=== PATIENT | male | born 1955 | race Caucasian/White ===

== ENCOUNTER 2019-10-01 17:45 | Inpatient (IN) ==
[2019-10-01] MEDS ORDERED: Naloxone 0.4 MG/ML INJ IVP PRN (21:31)
[2019-10-01] MEDS ORDERED: 0.9 % Sodium Chloride 1,000 ML IVC SCH (21:45)
[2019-10-01 22:00] LABS: Basophils % 0.2 %; INR 1.1; Prothrombin Time 12.5 Seconds (9.4-12.1)
[2019-10-01 22:01] LABS: Basophils # 0.1 K/mcL (0.0-0.2); Eosinophils % 0.2 %; Hematocrit 33.8 % (37.5-50.1); Hemoglobin 11.8 g/dL (12.9-16.9); Immature Granulocytes % 0.7 % (0-4); Lymphocytes # 1.4 K/mcL (0.6-4.6); Lymphocytes % 5.2 %; Mean Corpuscular HGB Conc 34.9 g/dL (31.6-35.5); Mean Corpuscular Volume 91.6 fL (83.0-100.0); Mean Platelet Volume 10.9 fL (9.4-12.4); Monocytes # 1.7 K/mcL (0.0-1.3); Monocytes % 6.5 %; Neutrophils # 22.9 K/mcL (1.6-8.9); Platelet Count 290 K/mcL (140-400); Red Blood Count 3.69 M/mcL (4.19-5.50); Segmented Neutrophils % 87.2 %; White Blood Count 26.2 K/mcL (4.3-11.1)
[2019-10-01 22:02] LABS: Eosinophils # 0.1 K/mcL (0.0-0.6)
[2019-10-01 22:03] LABS: Activated Partial Thrombo Time 30.6 Seconds (26.0-36.0); Platelet Estimate Normal (Normal)
[2019-10-01 22:17] LABS: Alanine Aminotransferase 30 Units/L (7-52); Albumin 3.2 g/dL (3.5-5.7); Albumin/Globulin Ratio 0.9 (1.1-2.2); Alkaline Phosphatase 83 Units/L (34-104); Aspartate Amino Transferase 49 Units/L (13-39); BUN/Creatinine Ratio 16 (6-26); Bilirubin,Total 0.5 mg/dL (0.3-1.0); Blood Urea Nitrogen 11 mg/dL (8-23); Calcium 8.8 mg/dL (8.6-10.3); Carbon Dioxide 23 mEq/L (23-29); Chloride 100 mEq/L (98-107); Globulin 3.4 g/dL (2.4-3.5); Glucose 123 mg/dL (70-105); Osmolality,Calculated 271 (280-300); Potassium 3.8 mEq/L (3.5-5.1); Sodium 130 mEq/L (136-145); Total Protein 6.6 g/dL (6.4-8.9); eGFR For African Americans > 60 (> 60); eGFR For Non-African Americans > 60 (> 60)
[2019-10-01] MEDS: Azithromycin 250 MG TABLET PO SCH (22:46)
[2019-10-01] MEDS: Acetaminophen 325 MG TABLET PO PRN (22:47)
[2019-10-01] MEDS: *HR* Heparin 5,000 UNIT/ML VIAL SQ SCH (22:49)
[2019-10-01] MEDS: Nicotine 21 MG PATCH.TD24 TD SCH (22:53)
[2019-10-01] MEDS: Ipratropium/Albuterol Neb 3 ML IH SCH (23:14)
[2019-10-01] MEDS ORDERED: *HR* LORazepam 2 MG/ML VIAL IVP ONE (23:36)
[2019-10-02] MEDS: Ipratropium/Albuterol Neb 3 ML IH SCH ×6 (03:12→23:56)
[2019-10-02 04:50] LABS: Bilirubin,Urine Negative (Negative); Blood,Urine Negative (Negative); Clarity,Urine Clear (Clear); Color,Urine Yellow (Yellow); Glucose,Urine (UA) Normal (Normal); Ketones,Urine 15 mg/dL (Negative); Leukocyte Esterase,Urine Negative (Negative); Nitrite,Urine Negative (Negative); PH,Urine 6.5 pH Units (5.0-8.0); Protein,Urine 30 mg/dL (Neg-Trace); Specific Gravity,Urine 1.015 (1.010-1.025); Urobilinogen,Urine Normal (Normal)
[2019-10-02 04:53] LABS: Bacteria,Urine None Seen per hpf (None-Few); Hyaline Casts,Urine None Seen per lpf (None-Few); RBC,Urine 0-3 per hpf (0-3); Squamous Epithelial Cell,Urine Moderate per lpf (None-Few); WBC,Urine 0-3 per hpf (0-3)
[2019-10-02] MEDS: *HR* Heparin 5,000 UNIT/ML VIAL SQ SCH ×3 (05:25→19:45)
[2019-10-02] MEDS: cefTRIAXone 1,000 MG in Water for inj. (sterile) 10 ML IVP SCH (09:27)
[2019-10-02] MEDS: Nicotine 21 MG PATCH.TD24 TD SCH (09:27)
[2019-10-02] MEDS: Acetaminophen 325 MG TABLET PO PRN ×3 (11:38→22:45)
[2019-10-02] MEDS ORDERED: *HR* LORazepam 2 MG/ML VIAL IVP ONE (14:48)
[2019-10-02] MEDS: OLANZapine 10 MG TAB.RAPDIS PO SCH (19:54)
[2019-10-02] MEDS: clonazePAM 0.5 MG TABLET PO SCH (19:54)
[2019-10-02] MEDS: Azithromycin 250 MG TABLET PO SCH (19:54)
[2019-10-02] MEDS: Sennosides/Docusate Sodium TABLET PO SCH (19:54)
[2019-10-02] MEDS: Melatonin 3 MG TABLET PO SCH (19:54)
[2019-10-02] MEDS: Latanoprost 2.5 ML BOTTLE BOTH EYES SCH (20:01)
[2019-10-02] MEDS: Lithium Carbonate ER 300 MG TABLET.ER PO SCH (20:06)
[2019-10-03] MEDS: Ipratropium/Albuterol Neb 3 ML IH SCH ×7 (05:24→23:05)
[2019-10-03] MEDS: *HR* Heparin 5,000 UNIT/ML VIAL SQ SCH ×3 (05:39→20:51)
[2019-10-03 06:29] LABS: Basophils # 0.1 K/mcL (0.0-0.2); Basophils % 0.3 %; Eosinophils # 0.1 K/mcL (0.0-0.6); Eosinophils % 0.6 %; Hematocrit 33.5 % (37.5-50.1); Immature Granulocytes % 0.7 % (0-4); Lymphocytes # 1.2 K/mcL (0.6-4.6); Lymphocytes % 6.5 %; Mean Corpuscular HGB Conc 32.8 g/dL (31.6-35.5); Mean Corpuscular Hemoglobin 30.8 pg (28.0-33.3); Mean Corpuscular Volume 93.8 fL (83.0-100.0); Mean Platelet Volume 10.9 fL (9.4-12.4); Monocytes # 1.4 K/mcL (0.0-1.3); Monocytes % 7.4 %; Neutrophils # 15.9 K/mcL (1.6-8.9); Platelet Count 307 K/mcL (140-400); Red Blood Count 3.57 M/mcL (4.19-5.50); Segmented Neutrophils % 84.5 %; White Blood Count 18.8 K/mcL (4.3-11.1)
[2019-10-03 06:54] LABS: BUN/Creatinine Ratio 9 (6-26); Blood Urea Nitrogen 5 mg/dL (8-23); Calcium 8.9 mg/dL (8.6-10.3); Carbon Dioxide 24 mEq/L (23-29); Chloride 100 mEq/L (98-107); Glucose 125 mg/dL (70-105); Osmolality,Calculated 277 (280-300); Potassium 3.9 mEq/L (3.5-5.1); Sodium 134 mEq/L (136-145); eGFR For African Americans > 60 (> 60); eGFR For Non-African Americans > 60 (> 60)
[2019-10-03] MEDS: Lithium Carbonate ER 300 MG TABLET.ER PO SCH ×2 (07:48→20:49)
[2019-10-03] MEDS: Aspirin Enteric Coated 325 MG Tablet PO SCH (07:48)
[2019-10-03] MEDS: Multivit/Ca/Min/Fe/FA 1 TAB TABLET PO SCH (07:48)
[2019-10-03] MEDS: clonazePAM 0.5 MG TABLET PO SCH ×3 (07:48→20:49)
[2019-10-03] MEDS: Cholecalciferol (D-3) 1,000 UNIT (25MCG) TABLET PO SCH (07:48)
[2019-10-03] MEDS: Sennosides/Docusate Sodium TABLET PO SCH ×2 (07:48→20:50)
[2019-10-03] MEDS: cefTRIAXone 1,000 MG in Water for inj. (sterile) 10 ML IVP SCH (07:49)
[2019-10-03] MEDS: Nicotine 21 MG PATCH.TD24 TD SCH (07:55)
[2019-10-03 20:02] VITALS: BP 120/56
[2019-10-03] MEDS: OLANZapine 10 MG TAB.RAPDIS PO SCH (20:47)
[2019-10-03] MEDS: Azithromycin 250 MG TABLET PO SCH (20:47)
[2019-10-03] MEDS: Acetaminophen 325 MG TABLET PO PRN (20:48)
[2019-10-03] MEDS: Melatonin 3 MG TABLET PO SCH (20:49)
[2019-10-03] MEDS: Latanoprost 2.5 ML BOTTLE BOTH EYES SCH (20:55)
[2019-10-04] MEDS: Ipratropium/Albuterol Neb 3 ML IH SCH ×3 (03:59→10:53)
[2019-10-04] MEDS: *HR* Heparin 5,000 UNIT/ML VIAL SQ SCH ×2 (05:10→13:26)
[2019-10-04 05:27] LABS: Basophils # 0.1 K/mcL (0.0-0.2); Basophils % 0.4 %; Eosinophils # 0.4 K/mcL (0.0-0.6); Eosinophils % 2.1 %; Hematocrit 33.2 % (37.5-50.1); Immature Granulocytes % 0.7 % (0-4); Lymphocytes # 1.3 K/mcL (0.6-4.6); Lymphocytes % 7.8 %; Mean Corpuscular HGB Conc 33.1 g/dL (31.6-35.5); Mean Corpuscular Hemoglobin 30.9 pg (28.0-33.3); Mean Corpuscular Volume 93.3 fL (83.0-100.0); Mean Platelet Volume 11.1 fL (9.4-12.4); Monocytes # 1.2 K/mcL (0.0-1.3); Monocytes % 7.3 %; Neutrophils # 13.7 K/mcL (1.6-8.9); Platelet Count 332 K/mcL (140-400); Red Blood Count 3.56 M/mcL (4.19-5.50); Red Cell Distribution Width 13.3 % (11.5-14.5); Segmented Neutrophils % 81.7 %; White Blood Count 16.8 K/mcL (4.3-11.1)
[2019-10-04 05:47] LABS: BUN/Creatinine Ratio 19 (6-26); Blood Urea Nitrogen 10 mg/dL (8-23); Calcium 8.8 mg/dL (8.6-10.3); Carbon Dioxide 23 mEq/L (23-29); Chloride 101 mEq/L (98-107); Glucose 123 mg/dL (70-105); Osmolality,Calculated 278 (280-300); Sodium 134 mEq/L (136-145); eGFR For African Americans > 60 (> 60); eGFR For Non-African Americans > 60 (> 60)
[2019-10-04] MEDS: cefTRIAXone 1,000 MG in Water for inj. (sterile) 10 ML IVP SCH (09:20)
[2019-10-04] MEDS: Multivit/Ca/Min/Fe/FA 1 TAB TABLET PO SCH (09:21)
[2019-10-04] MEDS: Cholecalciferol (D-3) 1,000 UNIT (25MCG) TABLET PO SCH (09:21)
[2019-10-04] MEDS: Sennosides/Docusate Sodium TABLET PO SCH (09:22)
[2019-10-04] MEDS: clonazePAM 0.5 MG TABLET PO SCH ×2 (09:22→15:47)
[2019-10-04] MEDS: Aspirin Enteric Coated 325 MG Tablet PO SCH (09:22)
[2019-10-04] MEDS: Lithium Carbonate ER 300 MG TABLET.ER PO SCH (09:22)
[2019-10-04] MEDS: Nicotine 21 MG PATCH.TD24 TD SCH (09:29)
== END 2019-10-04 15:52 | disposition home or self-care (01) | DRG 194 ==
LOC: 3BNU → SUATTDRO 20:04
PROVIDERS: ADMIT Family Medicine; ATTEND Internal Medicine

== ENCOUNTER 2019-10-13 15:08 | Inpatient (IN) ==
[2019-10-13] MEDS ORDERED: Ondansetron 4 MG/2 ML VIAL IVP PRN (17:55)
[2019-10-13] MEDS ORDERED: Ondansetron ODT 4 MG TAB.RAPDIS SL PRN (17:55)
[2019-10-13] MEDS ORDERED: methylPREDNISolone 125 MG/2 ML VIAL IVP ONE (18:12)
[2019-10-13] MEDS ORDERED: Naloxone 0.4 MG/ML INJ IVP PRN (18:53)
[2019-10-13] MEDS: Ipratropium/Albuterol Neb 3 ML IH SCH ×2 (20:04→23:00)
[2019-10-13] MEDS: Nicotine 21 MG PATCH.TD24 TD SCH (20:18)
[2019-10-13] MEDS: MetroNIDAZOLE 500 MG/100 ML 500 MG/100 ML BAG IVPB SCH (20:18)
[2019-10-14] MEDS ORDERED: MethylPREDNISolone 40 MG/ML VIAL IVP SCH
[2019-10-14] MEDS: Cefepime HCl 2,000 MG in Water for inj. (sterile) 20 ML IVP SCH ×3 (00:42→16:39)
[2019-10-14 03:54] LABS: Basophils % 0.1 %; Lymphocytes % 1.2 %
[2019-10-14] MEDS: Ipratropium/Albuterol Neb 3 ML IH SCH ×6 (03:55→23:23)
[2019-10-14 03:56] LABS: Hematocrit 33.4 % (37.5-50.1); Immature Granulocytes % 1.1 % (0-4); Lymphocytes # 0.4 K/mcL (0.6-4.6); Mean Corpuscular HGB Conc 32.9 g/dL (31.6-35.5); Mean Corpuscular Hemoglobin 30.8 pg (28.0-33.3); Mean Corpuscular Volume 93.6 fL (83.0-100.0); Mean Platelet Volume 10.6 fL (9.4-12.4); Monocytes # 0.5 K/mcL (0.0-1.3); Monocytes % 1.7 %; Neutrophils # 28.6 K/mcL (1.6-8.9); Platelet Count 463 K/mcL (140-400); Red Blood Count 3.57 M/mcL (4.19-5.50); Segmented Neutrophils % 95.9 %; White Blood Count 29.8 K/mcL (4.3-11.1)
[2019-10-14 04:14] LABS: BUN/Creatinine Ratio 38 (6-26); Blood Urea Nitrogen 23 mg/dL (8-23); Calcium 9.3 mg/dL (8.6-10.3); Carbon Dioxide 24 mEq/L (23-29); Chloride 102 mEq/L (98-107); Glucose 188 mg/dL (70-105); Osmolality,Calculated 285 (280-300); Potassium 4.3 mEq/L (3.5-5.1); Sodium 133 mEq/L (136-145); eGFR For African Americans > 60 (> 60); eGFR For Non-African Americans > 60 (> 60)
[2019-10-14 04:18] LABS: Platelet Estimate Increased (Normal)
[2019-10-14] MEDS: MetroNIDAZOLE 500 MG/100 ML 500 MG/100 ML BAG IVPB SCH ×4 (05:42→21:14)
[2019-10-14] MEDS: MethylPREDNISolone 40 MG/ML VIAL IVP SCH ×3 (05:43→21:14)
[2019-10-14] MEDS ORDERED: Haloperidol Lactate 5 MG/ML VIAL IVP ONE (07:24)
[2019-10-14] MEDS: D5% in Lactated Ringers 1,000 ML IVC SCH (08:17)
[2019-10-14] MEDS: Nicotine 21 MG PATCH.TD24 TD SCH (08:19)
[2019-10-14] MEDS: Haloperidol Lactate 5 MG/ML VIAL IVP PRN ×3 (12:32→21:13)
[2019-10-14] MEDS: *HR* Heparin 5,000 UNIT/ML VIAL SQ SCH (16:40)
[2019-10-15] MEDS: Cefepime HCl 2,000 MG in Water for inj. (sterile) 20 ML IVP SCH ×4 (01:19→23:05)
[2019-10-15] MEDS: Ipratropium/Albuterol Neb 3 ML IH SCH ×6 (03:56→23:56)
[2019-10-15 04:52] LABS: Hematocrit 32.6 % (37.5-50.1); Hemoglobin 10.4 g/dL (12.9-16.9); Mean Corpuscular HGB Conc 31.9 g/dL (31.6-35.5); Mean Corpuscular Hemoglobin 30.9 pg (28.0-33.3); Mean Corpuscular Volume 96.7 fL (83.0-100.0); Mean Platelet Volume 10.5 fL (9.4-12.4); Platelet Count 451 K/mcL (140-400); Red Blood Count 3.37 M/mcL (4.19-5.50); Red Cell Distribution Width 14.2 % (11.5-14.5); White Blood Count 24.8 K/mcL (4.3-11.1)
[2019-10-15] MEDS: MetroNIDAZOLE 500 MG/100 ML 500 MG/100 ML BAG IVPB SCH (05:08)
[2019-10-15] MEDS: *HR* Heparin 5,000 UNIT/ML VIAL SQ SCH ×2 (05:09→19:11)
[2019-10-15] MEDS: MethylPREDNISolone 40 MG/ML VIAL IVP SCH ×3 (05:09→20:40)
[2019-10-15 05:16] LABS: BUN/Creatinine Ratio 54 (6-26); Blood Urea Nitrogen 33 mg/dL (8-23); Calcium 9.3 mg/dL (8.6-10.3); Carbon Dioxide 25 mEq/L (23-29); Chloride 108 mEq/L (98-107); Glucose 195 mg/dL (70-105); Osmolality,Calculated 299 (280-300); Potassium 4.5 mEq/L (3.5-5.1); Sodium 138 mEq/L (136-145); eGFR For African Americans > 60 (> 60); eGFR For Non-African Americans > 60 (> 60)
[2019-10-15] MEDS: D5% in Lactated Ringers 1,000 ML IVC SCH (05:17)
[2019-10-15] MEDS: Nicotine 21 MG PATCH.TD24 TD SCH (08:37)
[2019-10-15] MEDS: Haloperidol Lactate 5 MG/ML VIAL IVP PRN (08:43)
[2019-10-15] MEDS ORDERED: Aminoglycoside Consult 1 EACH MC ONE (08:44)
[2019-10-15] MEDS ORDERED: *HR* LORazepam 0.5 MG TABLET PO PRN (11:55)
[2019-10-15] MEDS ORDERED: Haloperidol Lactate 5 MG/ML VIAL IVP PRN (13:31)
[2019-10-15] MEDS: clonazePAM 0.5 MG TABLET PO SCH ×2 (13:47→20:40)
[2019-10-15] MEDS: metroNIDAZOLE 500 MG TABLET PO SCH ×2 (15:37→20:43)
[2019-10-15] MEDS: OLANZapine 10 MG TAB.RAPDIS PO SCH (20:40)
[2019-10-15] MEDS: Lithium Carbonate ER 300 MG TABLET.ER PO SCH (20:40)
[2019-10-15] MEDS: Melatonin 3 MG TABLET PO SCH (20:40)
[2019-10-16 03:40] LABS: Hematocrit 31.3 % (37.5-50.1); Hemoglobin 9.9 g/dL (12.9-16.9); Mean Corpuscular HGB Conc 31.6 g/dL (31.6-35.5); Mean Corpuscular Hemoglobin 30.7 pg (28.0-33.3); Mean Corpuscular Volume 96.9 fL (83.0-100.0); Mean Platelet Volume 10.7 fL (9.4-12.4); Platelet Count 450 K/mcL (140-400); Red Blood Count 3.23 M/mcL (4.19-5.50); Red Cell Distribution Width 13.9 % (11.5-14.5); White Blood Count 17.7 K/mcL (4.3-11.1)
[2019-10-16] MEDS: Ipratropium/Albuterol Neb 3 ML IH SCH ×5 (03:49→20:12)
[2019-10-16 04:02] LABS: BUN/Creatinine Ratio 56 (6-26); Blood Urea Nitrogen 31 mg/dL (8-23); Calcium 9.3 mg/dL (8.6-10.3); Carbon Dioxide 26 mEq/L (23-29); Chloride 106 mEq/L (98-107); Glucose 190 mg/dL (70-105); Osmolality,Calculated 294 (280-300); Potassium 4.7 mEq/L (3.5-5.1); Sodium 136 mEq/L (136-145); eGFR For African Americans > 60 (> 60); eGFR For Non-African Americans > 60 (> 60)
[2019-10-16] MEDS: MethylPREDNISolone 40 MG/ML VIAL IVP SCH (04:17)
[2019-10-16] MEDS: *HR* Heparin 5,000 UNIT/ML VIAL SQ SCH ×2 (06:16→20:42)
[2019-10-16] MEDS: metroNIDAZOLE 500 MG TABLET PO SCH ×3 (10:40→20:42)
[2019-10-16] MEDS: cefTRIAXone 2,000 MG in Water for inj. (sterile) 20 ML IVP SCH (10:40)
[2019-10-16] MEDS: clonazePAM 0.5 MG TABLET PO SCH ×2 (10:41→20:39)
[2019-10-16] MEDS: Multivit/Ca/Min/Fe/FA 1 TAB TABLET PO SCH (10:41)
[2019-10-16] MEDS: Nicotine 21 MG PATCH.TD24 TD SCH (10:41)
[2019-10-16] MEDS: predniSONE 20 MG TABLET PO SCH (10:41)
[2019-10-16] MEDS ORDERED: Morphine Sulfate Oral CONC 10 MG/0.5 ML ORAL.SYG SL PRN (10:48)
[2019-10-16] MEDS: Lithium Carbonate ER 300 MG TABLET.ER PO SCH ×2 (14:12→23:33)
[2019-10-16] MEDS: Sennosides 8.6 MG TABLET PO SCH (14:12)
[2019-10-16] MEDS: OLANZapine 10 MG TAB.RAPDIS PO SCH (20:40)
[2019-10-16] MEDS: Melatonin 3 MG TABLET PO SCH (20:42)
[2019-10-17] MEDS: Ipratropium/Albuterol Neb 3 ML IH SCH ×6 (00:40→20:00)
[2019-10-17 05:21] LABS: Hematocrit 30.7 % (37.5-50.1); Hemoglobin 10.1 g/dL (12.9-16.9); Mean Corpuscular HGB Conc 32.9 g/dL (31.6-35.5); Mean Corpuscular Hemoglobin 30.4 pg (28.0-33.3); Mean Corpuscular Volume 92.5 fL (83.0-100.0); Mean Platelet Volume 10.5 fL (9.4-12.4); Platelet Count 455 K/mcL (140-400); Red Blood Count 3.32 M/mcL (4.19-5.50); Red Cell Distribution Width 13.7 % (11.5-14.5); White Blood Count 14.1 K/mcL (4.3-11.1)
[2019-10-17 05:46] LABS: BUN/Creatinine Ratio 52 (6-26); Blood Urea Nitrogen 25 mg/dL (8-23); Carbon Dioxide 27 mEq/L (23-29); Chloride 102 mEq/L (98-107); Glucose 112 mg/dL (70-105); Osmolality,Calculated 287 (280-300); Potassium 4.2 mEq/L (3.5-5.1); Sodium 136 mEq/L (136-145); eGFR For African Americans > 60 (> 60); eGFR For Non-African Americans > 60 (> 60)
[2019-10-17] MEDS: *HR* Heparin 5,000 UNIT/ML VIAL SQ SCH ×2 (06:00→18:04)
[2019-10-17] MEDS: cefTRIAXone 2,000 MG in Water for inj. (sterile) 20 ML IVP SCH (09:57)
[2019-10-17] MEDS: Multivit/Ca/Min/Fe/FA 1 TAB TABLET PO SCH (09:58)
[2019-10-17] MEDS: clonazePAM 0.5 MG TABLET PO SCH ×2 (09:58→21:12)
[2019-10-17] MEDS: predniSONE 20 MG TABLET PO SCH (09:58)
[2019-10-17] MEDS: Sennosides 8.6 MG TABLET PO SCH ×2 (09:58→21:12)
[2019-10-17] MEDS: metroNIDAZOLE 500 MG TABLET PO SCH ×3 (09:58→21:12)
[2019-10-17] MEDS: Lithium Carbonate ER 300 MG TABLET.ER PO SCH ×2 (09:58→21:14)
[2019-10-17] MEDS: Nicotine 21 MG PATCH.TD24 TD SCH (09:59)
[2019-10-17] MEDS ORDERED: Haloperidol Oral Conc 10 MG/5 ML UDC PO PRN ×2 (12:52→12:56)
[2019-10-17] MEDS: Melatonin 3 MG TABLET PO SCH (21:12)
[2019-10-17] MEDS: OLANZapine 10 MG TAB.RAPDIS PO SCH (21:13)
[2019-10-18] MEDS: Ipratropium/Albuterol Neb 3 ML IH SCH ×4 (00:02→11:39)
[2019-10-18] MEDS: *HR* Heparin 5,000 UNIT/ML VIAL SQ SCH (05:08)
[2019-10-18 07:11] VITALS: BP 143/70
[2019-10-18] MEDS ORDERED: Bisacodyl 10 MG RECTAL SUPPOSITORY RC SCH (09:00)
[2019-10-18] MEDS: cefTRIAXone 2,000 MG in Water for inj. (sterile) 20 ML IVP SCH (09:04)
[2019-10-18] MEDS: clonazePAM 0.5 MG TABLET PO SCH (09:05)
[2019-10-18] MEDS: Nicotine 21 MG PATCH.TD24 TD SCH (09:05)
[2019-10-18] MEDS: Lithium Carbonate ER 300 MG TABLET.ER PO SCH (09:05)
[2019-10-18] MEDS: predniSONE 20 MG TABLET PO SCH (09:06)
[2019-10-18] MEDS: Sennosides 8.6 MG TABLET PO SCH (09:06)
[2019-10-18] MEDS: Multivit/Ca/Min/Fe/FA 1 TAB TABLET PO SCH (09:06)
[2019-10-18] MEDS: metroNIDAZOLE 500 MG TABLET PO SCH (09:06)
== END 2019-10-18 13:14 | disposition hospice, inpatient (51) | DRG 871 ==
LOC: 2NENU → SUATTDRO 10-15 18:38
PROVIDERS: ADMIT Student in an Organized Health Care Education/Training Program; ATTEND Internal Medicine